=== PATIENT | female | born 1960 | race Caucasian/White ===

== ENCOUNTER 2024-11-09 16:07 | Inpatient (IN) | payer MEDICAID ==
[~2024-11-09] VITALS: Ht 165.1 cm; Wt 142.4 kg
[2024-11-09] MEDS ORDERED: oxyCODONE/APAP (5/325 MG) 1 UDTAB TABLET ONE (17:07)
[2024-11-09] MEDS: oxyCODONE/APAP (5/325 MG) 1 UDTAB TABLET PO ONE (17:11)
[2024-11-09 17:23] LABS: BASOPHILS # (AUTO) 0.1 K/uL (0.0-0.2); BASOPHILS % (AUTO) 1.1 % (0.0-2.0); EOSINOPHILS # (AUTO) 0.2 K/uL (0.0-0.7); EOSINOPHILS % (AUTO) 2.2 % (0.0-6.0); HEMATOCRIT 43 % (33-45); HEMOGLOBIN 14.4 g/dL (11.5-14.8); LYMPHOCYTES # (AUTO) 2.2 K/uL (0.8-4.8); LYMPHOCYTES % (AUTO) 22.9 % (20.0-44.0); MEAN CORPUSCULAR HEMOGLOBIN 29 PG (26.0-33.0); MEAN CORPUSCULAR HGB CONC 34 g/dl (31.0-36.0); MEAN CORPUSCULAR VOLUME 87 fL (82-100); MONOCYTES # (AUTO) 0.9 K/uL (0.1-1.30); MONOCYTES % (AUTO) 9.3 % (2.0-12.0); NEUTROPHILS # (AUTO) 6.3 K/uL (1.8-8.9); NEUTROPHILS % (AUTO) 64.5 % (43.0-81.0); PLATELET COUNT (AUTO) 197 K/uL (150-450); RED BLOOD CELL COUNT(AUTO) 4.93 MIL/uL (4.0-5.2); RED CELL DISTRIBUTION WIDTH 14.2 % (11.5-15.0); WHITE BLOOD COUNT (AUTO) 9.8 K/uL (4.3-11.0)
[2024-11-09 17:38] LABS: INR 1.03 (0.91-1.10); PARTIAL THROMBOPLASTIN TIME 26.2 SEC (24.3-34.3); PROTHROMBIN TIME 10.9 SECS (9.2-11.1)
[2024-11-09 17:46] LABS: ALBUMIN 3.1 g/dL (3.4-5.0); BILIRUBIN,DIRECT 0.1 mg/dL (0.0-0.2); BILIRUBIN,TOTAL 0.5 mg/dL (0.2-1.0); CALCIUM, SERUM 9.3 mg/dL (8.5-10.1); CREATININE 1.1 mg/dL (0.6-1.3); POTASSIUM 4.3 mmol/L (3.5-5.1)
[2024-11-09] MEDS ORDERED: FLUT1BLS15 IH (18:43)
[2024-11-09] MEDS ORDERED: DULO20CA PO (18:43)
[2024-11-09] MEDS ORDERED: WEGOVY SQ (18:43)
[2024-11-09] MEDS ORDERED: NA P133E RC (18:43)
[2024-11-09] MEDS ORDERED: BISA10SU11 RC (18:43)
[2024-11-09] MEDS ORDERED: APIX5TAB PO (18:43)
[2024-11-09] MEDS ORDERED: MELA5TAB PO (18:43)
[2024-11-09] MEDS ORDERED: GABA300C PO (18:43)
[2024-11-09] MEDS ORDERED: NITR0.4T48 SL (18:43)
[2024-11-09] MEDS ORDERED: ACET-73 PO (18:43)
[2024-11-09] MEDS ORDERED: HYDR-3980 PO (18:43)
[2024-11-09] MEDS ORDERED: OXYB10TA30 PO (18:43)
[2024-11-09] MEDS ORDERED: MAGN400O6 PO (18:43)
[2024-11-09] MEDS ORDERED: ACET325T53 PO (18:43)
[2024-11-09] MEDS ORDERED: ONDANSETRON HCL/PF 4 MG/2 ML VIAL IVP PRN (19:30)
[2024-11-09] MEDS ORDERED: ACETAMINOPHEN 325 MG TABLET PO PRN (19:30)
[2024-11-09] MEDS: ALBUTEROL FS 2.5 MG/3 ML VIAL.NEB NEB SCH (19:30)
[2024-11-09 20:18] VITALS: BP 113/61; TEMP 97.7; O2SAT 98
[2024-11-09] MEDS: APIXABAN 5 MG TABLET PO STA (21:18)
[2024-11-09] MEDS: HYDROCODONE/APAP 10/325MG TABLET PO PRN (22:22)
[2024-11-10] VITALS (7 sets, daily range): BP systolic 104–123; BP diastolic 47–66; TEMP 97.7–98.2; O2SAT 93–98
[2024-11-10] MEDS: BUDESONIDE RESPULE INH 0.5 MG/2 ML AMPUL.NEB NEB SCH (07:05)
[2024-11-10] MEDS: DULOXETINE HCL 20 MG CAPSULE.DR PO SCH (08:28)
[2024-11-10] MEDS: PANTOPRAZOLE 40 MG VIAL IV SCH (08:28)
[2024-11-10] MEDS: oxyCODONE/APAP (5/325 MG) 1 UDTAB TABLET PO PRN (08:28)
[2024-11-10] MEDS: OXYBUTYNIN CHLORIDE 5 MG TABLET PO SCH (08:28)
[2024-11-10] MEDS: GABAPENTIN 300 MG CAPSULE PO SCH (08:28)
[2024-11-10] MEDS: APIXABAN 5 MG TABLET PO SCH (08:29)
[2024-11-10] MEDS: MAG HYDROX/AL HYDROX/SIMETH 30 ML UDC PO PRN (14:22)
[2024-11-10] MEDS: DOCUSATE SODIUM 100 MG CAPSULE PO SCH (16:08)
[2024-11-11 07:00] LABS: BASOPHILS # (AUTO) 0.1 K/uL (0.0-0.2); BASOPHILS % (AUTO) 0.6 % (0.0-2.0); EOSINOPHILS # (AUTO) 0.2 K/uL (0.0-0.7); HEMATOCRIT 44 % (33-45); LYMPHOCYTES # (AUTO) 2.1 K/uL (0.8-4.8); LYMPHOCYTES % (AUTO) 24.1 % (20.0-44.0); MEAN CORPUSCULAR HEMOGLOBIN 30 PG (26.0-33.0); MEAN CORPUSCULAR HGB CONC 34 g/dl (31.0-36.0); MEAN CORPUSCULAR VOLUME 87 fL (82-100); MONOCYTES # (AUTO) 0.7 K/uL (0.1-1.30); MONOCYTES % (AUTO) 8.6 % (2.0-12.0); NEUTROPHILS # (AUTO) 5.6 K/uL (1.8-8.9); NEUTROPHILS % (AUTO) 64.7 % (43.0-81.0); PLATELET COUNT (AUTO) 207 K/uL (150-450); RED BLOOD CELL COUNT(AUTO) 5.09 MIL/uL (4.0-5.2); RED CELL DISTRIBUTION WIDTH 13.9 % (11.5-15.0); WHITE BLOOD COUNT (AUTO) 8.6 K/uL (4.3-11.0)
[2024-11-11 07:32] LABS: CALCIUM, SERUM 9.3 mg/dL (8.5-10.1); CREATININE 0.9 mg/dL (0.6-1.3); POTASSIUM 4.1 mmol/L (3.5-5.1)
[2024-11-11 08:00] VITALS: BP 110/54; TEMP 99.1; O2SAT 96
[2024-11-11] MEDS: PANTOPRAZOLE 40 MG TABLET.DR PO SCH (09:50)
[2024-11-11] MEDS ORDERED: HYDR-3972 PO (11:29)
[2024-11-11 13:51] VITALS: O2SAT 95
[2024-11-11 14:01] VITALS: O2SAT 96; O2SAT 98
[2024-11-11 16:00] VITALS: BP 104/62; TEMP 97.4; O2SAT 96
== END 2024-11-11 16:30 | DRG 58 ==
LOC: ER 16:20 → MED 19:10
DX: R26.89 Other abnormalities of gait and mobility (principal); Z68.43 Body mass index [BMI] 50.0-59.9, adult; E66.01 Morbid (severe) obesity due to excess calories; E78.5 Hyperlipidemia, unspecified; I10 Essential (primary) hypertension; J45.909 Unspecified asthma, uncomplicated; Z86.711 Personal history of pulmonary embolism; Z86.718 Personal history of other venous thrombosis and embolism; Z91.81 History of falling; F32.A Depression, unspecified
CPT/HCPCS: 36415; 71045-TC; 72170-TC; 80048-TC; 80076-TC; 85025-TC; 85730-TC; 86850-TC; 87081-TC; 94762-TC; 94799-TC; 97116-TC; 97530-TC; G0378; J2470